=== PATIENT | female | born 1970 | race Caucasian/White ===

== ENCOUNTER → 2018-04-10 | Outpatient (REF) | payer BC ==
[2018-04-10 18:10] LABS: C REACTIVE PROTEIN QUANTITATIV 0.53 MG/DL (0.00-0.30)
[2018-04-10 18:44] LABS: BASO % 0.6 % (0.0-1.0); EOS % 0.6 % (0.0-3.0); HEMATOCRIT 40.9 % (36.0-47.0); HEMOGLOBIN 13.5 g/dl (12.0-15.5); IMMATURE GRANULOCYTE % 0.2 % (0-3.0); LYMPH # 2.1 10^3/uL (1.5-4.5); LYMPH % 32.6 % (24.0-44.0); MEAN CORPUSCULAR HEMOGLOBIN 29.4 pg (27.0-33.0); MEAN CORPUSCULAR VOLUME 89.1 fl (80.0-96.0); MONO # 0.5 10^3/uL (0.0-0.8); NEUTROPHILS # 3.8 10^3/uL (1.8-7.7); PLATELET COUNT, AUTOMATED 358 10^3/uL (150-450); RED BLOOD COUNT 4.59 10^6/uL (4.00-5.40); RED CELL DISTRIBUTION WIDTH 12.6 % (11.5-14.5); WHITE BLOOD COUNT 6.4 10^3/uL (4.0-10.0)
[2018-04-10 20:47] LABS: ERYTHROCYTE SEDIMENTATION RATE 17 mm/hr (0-20)
== END ==
LOC: M SFHCPLAZ 13:23
DX: J32.0 Chronic maxillary sinusitis (principal); A48.0 Gas gangrene
CPT/HCPCS: 86140

== ENCOUNTER → 2025-08-11 | Outpatient (REF) | payer BC ==
[~2025-08-11] MED LIST: ALEV220T26 PO; ALLE180T33 PO; BACL10TA2; CART120C; D-3-50003 PO; ESTR1TAB; GABA-1171; GABA-1172; LORA-243 PO; MULT1TAB10 PO; TRAM50TA2 PO; TYLE500T78 PO
== END ==
LOC: M SFHCDERM 09:35
PROVIDERS: ATTEND Physician Assistant
DX: D48.5 Neoplasm of uncertain behavior of skin (principal)